=== PATIENT | male | born 2000 | race Caucasian/White ===

== ENCOUNTER 2020-08-19 16:35 | Emergency (ER) | payer OTHER ==
[~2020-08-19] VITALS: Ht 185.4 cm; Wt 111.1 kg
== END 2020-08-19 19:29 | disposition home or self-care (01) ==
LOC: ER 16:35
DX: S81.011A Laceration without foreign body, right knee, initial encounter (principal); V43.53XA Car driver injured in collision with pick-up truck in traffic accident, initial encounter; Y92.410 Unspecified street and highway as the place of occurrence of the external cause
CPT/HCPCS: 12001; 71046; 73562-RT; 99284-25; A9270

== ENCOUNTER 2020-08-29 12:59 | Emergency (ER) | payer OTHER ==
[~2020-08-29] VITALS: Ht 180.3 cm; Wt 97.5 kg
== END 2020-08-29 13:16 | disposition home or self-care (01) ==
LOC: ER 12:59
DX: S81.011D Laceration without foreign body, right knee, subsequent encounter (principal); W45.8XXD Other foreign body or object entering through skin, subsequent encounter